=== PATIENT | male | born 1950 | race Caucasian/White ===

== ENCOUNTER 2024-06-14 07:27 | Observation (INO) ==
[~2024-06-14 07:27] MED LIST: Naloxone 0.4 mg VIAL 0.4 mg/ml 1 ml VIAL IV PRN
[2024-06-14] MEDS ORDERED: Midazolam 2 mg/2 ml VIAL 1 mg/ml 2 ml VIAL (2 mg) ONE (08:14)
[2024-06-14] MEDS ORDERED: fentaNYL 250 mcg/5 ml 50 MCG/ML 5 ml VIAL (250 MCG) ONE (08:14)
[2024-06-14] MEDS ORDERED: Rocuronium 50 mg VIAL 10 mg/ml 5 ml VIAL (50 mg) ONE ×4 (08:14→13:01)
[2024-06-14] MEDS ORDERED: ceFAZolin 2 GM PREMIX 2 GM/50 ML BAG ONE (08:15)
[2024-06-14] MEDS ORDERED: Propofol 10 MG/ML 20 ML BTL ONE (08:19)
[2024-06-14] MEDS ORDERED: Lidocaine 2% PF 5 ML VIAL ONE (08:20)
[2024-06-14 09:04] LABS: Rapid COVID-19 Molecular Undetected (Undetected)
[2024-06-14] MEDS ORDERED: Ondansetron 4 mg VIAL 2 MG/ML 2 ml VIAL IV PRN (09:06)
[2024-06-14] MEDS ORDERED: Bupivacaine 0.25% SDV 30 ML ONE (09:37)
[2024-06-14] MEDS ORDERED: Ondansetron 4 mg VIAL 2 MG/ML 2 ml VIAL ONE (10:22)
[2024-06-14] MEDS ORDERED: Acetaminophen IV 1 GM/100ML 1,000 MG/100 ML BAG IV ONE (10:22)
[2024-06-14] MEDS ORDERED: Dexamethasone IV 4 MG/ML VIAL 1 ml VIAL ONE (10:22)
[2024-06-14] MEDS ORDERED: Glycopyrrolate IV 0.2 MG/ML 1 ML VIAL ONE (10:47)
[2024-06-14] MEDS ORDERED: fentaNYL 100 mcg/2 ml 50 MCG/ML VIAL ONE (14:05)
[2024-06-14] MEDS: fentaNYL 100 mcg/2 ml 50 MCG/ML VIAL IV PRN (14:07)
[2024-06-14 16:03] LABS: ABS Lymphocytes 0.8 10^3/uL (1.0-4.8); ABS Monocytes 0.4 10^3/uL (0.0-1.1); ABS Neutrophils 16.4 10^3/uL (1.5-7.6); Hematocrit 43.5 % (38-53); Hemoglobin 14.6 g/dL (13.2-16.3); Lymphocyte % 4.7 %; Mean Corpuscular Hemoglobin 27.4 pg (27-33); Mean Corpuscular Hgb Conc 33.5 g/dL (31-36); Mean Corpuscular Volume 81.9 fL (80-97); Mean Platelet Volume 7.9 fL (7.5-11.2); Platelet Count 231 10^3/uL (150-450); Red Blood Count 5.31 10^6/uL (4.06-5.63); Red Cell Distribution Width 13.4 % (12-17); White Blood Count 17.7 10^3/uL (3.6-10.2)
[2024-06-14] MEDS: NS 0.9% 1000 ml BAG 1,000 ML IV SCH (16:05)
[2024-06-14] MEDS: BUPIVACAINE **LIPOSOME/PF 13.3 MG/ML (266MG/ 20ML) VIAL (RESTRICTED) INFIL ONE (16:15)
[2024-06-14 16:20] LABS: Calcium 8.8 mg/dL (8.6-10.3); Creatinine, Serum 0.94 mg/dL (0.67-1.17); Potassium 4.7 mmol/L (3.5-5.0); eGFR CKD-EPI 86.7 (>60)
[2024-06-14] MEDS: Neomycin/Polym/Bacit TOP OINT 15 GM TOPICAL SCH (16:54)
[2024-06-14] MEDS: Buffered Lidocaine 1% SYRIN 1 ml INTRADERM ONE (16:56)
[2024-06-14] MEDS: Lactated Ringers 1000 ml BAG 1,000 ML IV SCH (16:56)
[2024-06-14] MEDS: Magnesium Hydroxide LIQ 30 ML UDC PO SCH (21:29)
[2024-06-15 09:25] LABS: ABS Monocytes 0.8 10^3/uL (0.0-1.1); ABS Neutrophils 7.6 10^3/uL (1.5-7.6); ABS Nucleated RBC 0.01 10^3/ul; Eosinophil % 0.3 %; Hematocrit 40.6 % (38-53); Lymphocyte % 19.3 %; Mean Corpuscular Hemoglobin 28.4 pg (27-33); Mean Corpuscular Hgb Conc 34.5 g/dL (31-36); Mean Corpuscular Volume 82.3 fL (80-97); Mean Platelet Volume 7.7 fL (7.5-11.2); Platelet Count 229 10^3/uL (150-450); Red Blood Count 4.93 10^6/uL (4.06-5.63); Red Cell Distribution Width 13.2 % (12-17); White Blood Count 10.5 10^3/uL (3.6-10.2)
[2024-06-15 09:40] VITALS: BP 134/82
[2024-06-15 10:30] LABS: Calcium 8.5 mg/dL (8.6-10.3); Creatinine, Serum 0.92 mg/dL (0.67-1.17); Potassium 4.1 mmol/L (3.5-5.0); eGFR CKD-EPI 88.9 (>60)
== END 2024-06-15 13:10 | disposition home or self-care (01) ==
LOC: SSU 07:27 → OR 07:27
PROVIDERS: ADMIT Urology; ATTEND Urology